=== PATIENT | female | born 1990 | race Caucasian/White ===

== ENCOUNTER 2021-07-24 12:00 | Inpatient (IN) | payer BC ==
[2021-07-22 12:58] VITALS: BMI 49.8
[2021-07-25 06:36] LABS: Glucose,Whole Blood 86 mg/dL (75-99)
[2021-07-25] MEDS ORDERED: CITRIC ACID-SODIUM CITRATE 15 ML CUP PO ONE ×2 (06:37→07:43)
[2021-07-25 06:49] VITALS: RESP 16
[2021-07-25 07:16] LABS: Basophils % (A) 0 %; Eosinophils # (A) 0.1 k/uL (0-0.7); Eosinophils % (A) 1 %; HCT 39.1 % (34.0-46.0); HGB 12.5 gm/dL (11.4-16.0); Lymphocytes # (A) 1.9 k/uL (1.0-4.8); Lymphocytes % (A) 15 %; MCH 27.9 pg (25.0-35.0); MCV 87.3 fL (80.0-100.0); Mean Platelet Volume 8.4; Monocytes # (A) 0.5 k/uL (0-1.0); Monocytes % (A) 4 %; Neutrophils # (A) 9.5 k/uL (1.3-7.7); Neutrophils % (A) 78 %; Platelet Count 260 k/uL (150-450); RBC 4.48 m/uL (3.80-5.40); RDW 14.7 % (11.5-15.5); WBC 12.2 k/uL (3.8-10.6)
[2021-07-25] MEDS: LACTATED RINGERS 1,000 ML IV SCH ×2 (07:24→21:52)
[2021-07-25] MEDS ORDERED: ceFAZolin 3 GM in SODIUM CHLORIDE 0.9% 100 ML IVPB ONE (07:43)
[2021-07-25] MEDS ORDERED: OXYTOCIN 30 UNITS/500 ML NS BAG IV ONE (07:56)
[2021-07-25] MEDS ORDERED: MORPHINE SULFATE (PF) 0.3 MG/0.3 ML SYR ONE (07:56)
[2021-07-25] MEDS ORDERED: PHENYLEPHRINE-0.9% NACL SYG 1,000 MCG/10 ML SYRINGE ONE (07:56)
[2021-07-25] MEDS ORDERED: NALBUPHINE 10 MG/ML (1 ML AMP) ONE (07:56)
[2021-07-25] MEDS ORDERED: KETOROLAC 15 MG/ML 1 ML VIAL ONE (07:56)
[2021-07-25] MEDS ORDERED: ONDANSETRON 4 MG/2 ML VIAL ONE (07:56)
--- NOTE | 2021-07-25 07:57 | P.HPOB ---
History of Present Illness H&P Date: 07/25/21 Chief Complaint: large for gestational age this is a 30 year old 1 para 0 woman with an estimated due date of 08/03/2021 she was admitted at 38-5/7 weeks gestation for primary low transverse section secondary to ultrasound estimated weight greater than the 99th percentile with parameters indicating abdominal circumference also greater than the 99th percentile. She has gestational diabetes that is diet controlled. Based on a history of gestational diabetes and ultrasound estimated weight is she was offered primary low transverse section to prevent possible shoulder dystocia. After thorough discussions of risks, benefits, recovery and implications for future pregnancies, the patient and her have decided to proceed with primary low transverse section. Review of Systems All systems: negative Past Medical History Additional Past Medical History / Comment(s): PCOS History of Any Multi-Drug Resistant Organisms: None Reported Past Surgical History: Breast Surgery Additional Past Surgical History / Comment(s): breast reduction Past Anesthesia/Blood Transfusion Reactions: Motion Sickness, Postoperative Nausea & Vomiting (PONV) Past Psychological History: No Psychological Hx Reported Smoking Status: Never smoker Past Alcohol Use History: None Reported Past Drug Use History: None Reported - Past Family History Mother Family Medical History: No Reported History Medications and Allergies Home Medications Medication Instructions Recorded Confirmed Type Ascorbic Acid [Vitamin C] 500 mg PO DAILY 07/22/21 07/25/21 History [place]-3 Fatty Acids/Fish Oil [Fish 1 each PO DAILY 07/22/21 07/25/21 History Oil 1,000 mg Softgel] Pnv No.95/Ferrous Fum/Folic AC 1 each PO DAILY 07/22/21 07/25/21 History [ Multivitamin Tablet] metFORMIN HCL [Glucophage] 1,000 mg PO BID 07/22/21 07/25/21 History Allergies Allergy/AdvReac Type Severity Reaction Status Date / Time latex Allergy Unknown Verified 07/25/21 06:32 Exam Vital Signs Temp Pulse Resp Pulse Ox 07/25/21 06:28 97.1 F L 97 16 99 Intake and Output 07/24/21 07/25/21 07/25/21 22:59 06:59 14:59 Other: Weight 132.903 kg this is a pleasant, visibly gravid, female in no obvious distress. HEENT exam is unremarkable. Lungs are clear to auscultation bilaterally and the heart is a regular rate and rhythm. The abdomen is gravid with a fundal height of 45 cm. Pelvic exam is deferred. She has 1+ bilateral lower extremity edema and 1+ deep tendon reflexes. heart tones are category 1 by external fe jeremie monitoring. Results Result Diagrams: 07/25/21 06:30 Abnormal Lab Results - Last 24 Hours (Table) 07/25/21 Range/Units 06:30 WBC 12.2 H (3.8-10.6) k/uL Neutrophils # 9.5 H (1.3-7.7) k/uL Assessment and Plan (1) Gestational diabetes Current Visit: Yes Status: Acute Code(s): O24.419 - GESTATIONAL DIABETES MELLITUS IN , UNSP CONTROL SNOMED Code(s): 47930288 (2) Large for gestational age fetus Current Visit: Yes Status: Acute Code(s): WMR9928 - SNOMED Code(s): 696578642 Plan: 30-year-old 1 at 38-5/7 weeks gestation admitted for primary low transverse section secondary to significant estimated large for gestational age in setting of gestational diabetes. Specifically abdominal circumference was greater than 99th percentile and larger than head circumference percentile. Risks and benefits of primary low transverse section have been reviewed with the patient. Risks include bleeding, transfusion, infection, injury to bowel, bladder, ureters, infant or other maternal structures. We have discussed applications for future pregnancies. We also discussed the potential risk of shoulder dystocia in the event of vaginal delivery. Consent is signed for primary section. status is currently reassuring by external monitoring.
[2021-07-25] MEDS ORDERED: ONDANSETRON 4 MG/2 ML VIAL IVP PRN (09:29)
[2021-07-25] MEDS ORDERED: METOCLOPRAMIDE 5 MG/ML 2 ML VIAL IVP PRN (09:29)
[2021-07-25] MEDS ORDERED: diphenhydrAMINE 50 MG CAP PO PRN (09:29)
[2021-07-25] MEDS ORDERED: HYDROmorphone 2 MG TAB PO PRN (09:29)
[2021-07-25] MEDS ORDERED: OXYTOCIN 10 UNIT/ML 1 ML VIAL IM ONE (09:29)
[2021-07-25] MEDS ORDERED: ZOLPIDEM 5 MG TAB PO PRN (09:29)
[2021-07-25] MEDS ORDERED: NALOXONE 0.4 MG/ML 1 ML VIAL IV PRN ×2 (09:29→09:43)
[2021-07-25] MEDS ORDERED: diphenhydrAMINE 50 MG/ML 1 ML VIAL IVP PRN ×2 (09:29)
[2021-07-25] MEDS ORDERED: HYDROmorphone 1 MG/ML 1 ML SYRINGE IVP PRN (09:29)
[2021-07-25] MEDS ORDERED: SIMETHICONE 80 MG CHEWABLE PO PRN (09:29)
[2021-07-25] MEDS ORDERED: diphenhydrAMINE 25 MG CAP PO PRN (09:29)
[2021-07-25] MEDS ORDERED: MORPHINE SULFATE 2 MG/ML SYRINGE IVP PRN (09:43)
--- NOTE | 2021-07-25 09:51 | P.OP ---
Date of Procedure: 07/25/21 Preoperative Diagnosis: intrauterine at 38-5/7 weeks Large for gestational age based on ultrasound, estimated weight greater than the 99th percentile Gestational diabetes Postoperative Diagnosis: same Procedure(s) Performed: primary low transverse section Anesthesia: spinal Surgeon: Kandy Bryant Well Surveying Engineer #1: Ami Villarreal Estimated Blood Loss (ml): 400 IV fluids (ml): 1,000 Urine output (ml): 100 Pathology: none sent Condition: stable Disposition: PACU Indications for Procedure: Ultrasound at 36 weeks showing estimated weight greater than the 99th percentile and in particular and elevated abdominal circumference to head circumference ratio with the abdominal circumference also measuring greater than the 99th percentile. In the setting of gestational diabetes this increase her risk for shoulder dystocia at the time of vaginal delivery and she was counseled accordingly. Operative Findings: male in the vertex presentation with Apgars of 9 at 1 minute and 9 at 5 minutes weighing 9 lbs. 8 oz., 4300 g. Intact, three-vessel cord placenta. Small approximately 2 cm anterior fundal subserosal fibroid. Otherwise normal-appearing bilateral fallopian tubes and ovaries Description of Procedure: After the patient was met preoperatively and all questions were answered, she was taken to the operating room where spinal anesthetic was administered without incident. She was then positioned, prepped and draped in the dorsal supine position with a leftward tilt. Zapien catheter was placed. After anesthetic was confirmed adequate, a low transverse skin incision was made following the pre- existing scar. This was carried down to the underlying fascia both sharply and with the electrocautery. The fascia was then incised in the midline and extended bilaterally with the Dominique scissors. The superior aspect of the fascial incision was elevated and the underlying rectus muscles dissected off sharply and with the electrocautery. The inferior aspect of the fascial incision was also elevated and the underlying rectus muscles dissected off sharply. The muscles were adherent in the midline. These were bluntly and the peritoneum was tented up with hemostats. The peritoneum was entered sharply with the Metzenbaum scissors. The peritoneal incision was extended inferiorly and superiorly with good visualization of the bladder. The bladder blade was placed. The vesicouterine peritoneum was identified, tented up and entered sharply, the bladder flap was created both sharply and digitally. A low transverse uterine incision was then made sharply and carried down to the underlying amniotic membranes. Membranes were ruptured and clear fluid was noted. The uterine incision was extended bilaterally bluntly. The 's head was delivered from the incision without difficulty. The nose and mouth were bulb suctioned. The rest of the infant was delivered onto the field without difficulty. And cut and the was taken to the warmer. An intact, three-vessel cord placenta was then manually removed and the uterus was exteriorized. The uterus was cleared of all clot and debris. The uterine incision was delineated with Garcia clamps. The uterine incision was then closed in a running locked fashion with 0 Vicryl suture. a second imbricating layer with the same suture was placed. The uterus was then returned to the abdomen and the gutters were cleared of all clot and debris. The uterine incision was reinspected and Bovie electrocautery was utilized were necessary for hemostasis. The fascial edges, peritoneal edges and rectus muscles were inspected and Bovie electrocautery utilized were necessary for hemostasis. The fascia was then closed in a running fashion with 0 Vicryl suture. The subcuticular tissue was copiously suction irrigated and Bovie electrocautery utilized were necessary for hemostasis. 3-0 Vicryl suture was utilized to reapproximate the subcuticular tissue. The skin was then closed in a subcutaneous fashion with 4-0 Vicryl suture. All counts reported to me as correct by the operating room staff at the end of the procedure. The patient received antibiotics preoperatively and Pitocin following cord clamp. Mother and infant were both transported from the room in stable condition.
[2021-07-25] MEDS ORDERED: KETOROLAC 15 MG/ML 1 ML VIAL IVP SCH (18:00)
[2021-07-25] MEDS: KETOROLAC 30 MG/ML 1 ML VIAL IVP SCH (18:00)
[2021-07-25] MEDS: ACETAMINOPHEN TAB 500 MG TAB PO SCH ×2 (21:52→21:53)
[2021-07-25] MEDS: IBUPROFEN 600 MG TAB PO SCH (21:53)
[2021-07-25] MEDS: SENNOSIDES-DOCUSATE SODIUM 1 EACH TAB PO SCH (21:56)
[2021-07-26] MEDS: KETOROLAC 30 MG/ML 1 ML VIAL IVP SCH (00:37)
[2021-07-26] MEDS: LACTATED RINGERS 1,000 ML IV SCH ×2 (02:03→06:21)
[2021-07-26] MEDS: ACETAMINOPHEN TAB 500 MG TAB PO SCH ×3 (06:31→16:30)
[2021-07-26] MEDS: IBUPROFEN 600 MG TAB PO SCH ×2 (06:31→19:00)
[2021-07-26] MEDS: SENNOSIDES-DOCUSATE SODIUM 1 EACH TAB PO SCH ×2 (09:24→19:00)
[2021-07-26 09:32] LABS: Basophils % (A) 0 %; Eosinophils # (A) 0.1 k/uL (0-0.7); Eosinophils % (A) 1 %; HCT 33.2 % (34.0-46.0); HGB 10.9 gm/dL (11.4-16.0); Lymphocytes # (A) 1.5 k/uL (1.0-4.8); Lymphocytes % (A) 13 %; MCH 28.8 pg (25.0-35.0); MCHC 32.9 g/dL (31.0-37.0); MCV 87.6 fL (80.0-100.0); Mean Platelet Volume 8.4; Monocytes # (A) 0.5 k/uL (0-1.0); Monocytes % (A) 4 %; Neutrophils # (A) 9.4 k/uL (1.3-7.7); Neutrophils % (A) 81 %; Platelet Count 219 k/uL (150-450); RBC 3.79 m/uL (3.80-5.40); RDW 14.9 % (11.5-15.5); WBC 11.7 k/uL (3.8-10.6)
[2021-07-27] MEDS: ACETAMINOPHEN TAB 500 MG TAB PO SCH ×3 (00:11→13:41)
[2021-07-27] MEDS: IBUPROFEN 600 MG TAB PO SCH ×3 (02:19→10:03)
[2021-07-27] MEDS: KETOROLAC 30 MG/ML 1 ML VIAL IVP SCH ×2 (03:37→03:38)
[2021-07-27] MEDS: LACTATED RINGERS 1,000 ML IV SCH (03:39)
[2021-07-27 08:23] VITALS: BP 122/78; PULSE 85; TEMP 97.9
[2021-07-27] MEDS: SENNOSIDES-DOCUSATE SODIUM 1 EACH TAB PO SCH (08:27)
--- NOTE | 2021-07-27 08:39 | P.PNOBGPC ---
Subjective - Subjective Principal diagnosis: Postop day 1, primary Interval history: Patient is doing well post operatively. Ambulating and voiding without difficulty. She is tolerating a regular diet without nausea or vomiting. She is breast-feeding without difficulty, she states her pain is well-controlled with oral ibuprofen and Tylenol. Patient reports: Reports appetite normal, Reports voiding normally, Reports pain well controlled, Reports ambulating normally [place]: doing well Objective - Vital Signs Latest vital signs: Vital Signs Temp Pulse Resp BP Pulse Ox 07/27/21 08:00 97.9 F 85 16 122/78 07/27/21 00:00 97.7 F 99 16 125/78 99 07/26/21 16:00 98.2 F 102 H 16 117/77 07/26/21 12:00 98.8 F 114 H 16 138/66 07/26/21 09:14 97.9 F 101 H 16 112/75 07/26/21 09:08 97.9 F 101 H 16 112/75 - Exam Extremities: Present: normal, edema Abdomen: Present: normal appearance Incision: Present: normal, dry Uterus: Present: normal, firm - Labs Labs: Abnormal Lab Results - Last 24 Hours (Table) 07/26/21 Range/Units 08:58 WBC 11.7 H (3.8-10.6) k/uL RBC 3.79 L (3.80-5.40) m/uL Hgb 10.9 L (11.4-16.0) gm/dL Hct 33.2 L (34.0-46.0) % Neutrophils # 9.4 H (1.3-7.7) k/uL Assessment and Plan (1) S/P section Current Visit: Yes Status: Acute Code(s): Z98.891 - HISTORY OF UTERINE SCAR FROM PREVIOUS SURGERY SNOMED Code(s): 362636932 (2) Gestational diabetes Current Visit: Yes Status: Acute Code(s): O24.419 - GESTATIONAL DIABETES MELLITUS IN , UNSP CONTROL SNOMED Code(s): 12109193 (3) Large for gestational age fetus Current Visit: Yes Status: Acute Code(s): NYU3277 - SNOMED Code(s): 654727947 Plan: Patient is doing well postoperatively. Encourage increased ambulation. Continue routine postoperative care and anticipate discharge home tomorrow. Late entry of this note as the computers are down yesterday.
--- NOTE | 2021-07-27 08:48 | P.DS ---
Providers Date of admission: 07/25/21 06:00 Expected date of discharge: 07/27/21 Attending physician: Kandy Bryant Primary care physician: Stated None - Discharge Diagnosis(es) (1) S/P section Current Visit: Yes Status: Acute (2) Gestational diabetes Current Visit: Yes Status: Acute (3) Large for gestational age fetus Current Visit: Yes Status: Acute Hospital Course: This is a 30-year-old 1 now para 1 that presented to labor and delivery for scheduled primary secondary to large for gestational age , known gestational diabetes A1. Patient had been receiving routine care which has been complicated by a diagnosis of gestational diabetes. Patient had been well controlled with diet during the . Patient had an ultrasound approximate 2 weeks prior to today revealing a large for gestational age infant, abdominal circumference greater than the 99th percentile. Patient was counseled on primary given large for gestational age . Patient elected to proceed with primary . Patient was admitted and was performed without difficulty. A viable male infant was delivered at 821, weight of 9 lbs. 8 oz. with Apgars of 9 and 9 at one and 5 minutes respectively. Patient's course has been uneventful. On this day #2 she is a billing and voiding without difficulty. She is tolerating a regular diet without nausea or vomiting. She states her pain is well-controlled. She is breast and bottle feeding. Infant continues to do well and she wishes discharge home. Patient Condition at Discharge: Good Plan - Discharge Summary Discharge Rx Participant: No New Discharge Prescriptions: No Action Pnv No.95/Ferrous Fum/Folic AC [ Multivitamin Tablet] 1 each PO DAILY Ascorbic Acid [Vitamin C] 500 mg PO DAILY metFORMIN HCL [Glucophage] 1,000 mg PO BID [place]-3 Fatty Acids/Fish Oil [Fish Oil 1,000 mg Softgel] 1 each PO DAILY Discharge Medication List Ascorbic Acid [Vitamin C] 500 mg PO DAILY 07/22/21 [History] [place]-3 Fatty Acids/Fish Oil [Fish Oil 1,000 mg Softgel] 1 each PO DAILY 07/22/21 [History] Pnv No.95/Ferrous Fum/Folic AC [ Multivitamin Tablet] 1 each PO DAILY 07/22/21 [History] metFORMIN HCL [Glucophage] 1,000 mg PO BID 07/22/21 [History] Follow up Appointment(s)/Referral(s): Kandy Bryant MD [STAFF PHYSICIAN] - 2 Weeks Patient Instructions/Handouts: (DC), (GEN) Discharge Disposition: HOME SELF-CARE
--- NOTE | 2021-07-27 19:00 | P.PN ---
Progress Note - Text 07/26/21 [id number] 20-year-old female status post with spinal Duramorph. Patient seen and evaluated for postop pain control, she had a vas of 1 with no complains of nausea vomiting or pruritus. Patient doing well
== END 2021-07-27 15:53 | disposition home or self-care (01) | DRG 788 ==
LOC: 4FBP 07-25 06:00
PROVIDERS: ADMIT Obstetrics & Gynecology; ATTEND Obstetrics & Gynecology
PROC: 10D00Z1 Extraction of Products of Conception, Low, Open Approach (ICD-10-PCS; principal; 2021-07-25 08:00)
DX: O36.63X0 Maternal care for excessive fetal growth, third trimester, not applicable or unspecified (principal); Z3A.38 38 weeks gestation of pregnancy; Z37.0 Single live birth; O34.13 Maternal care for benign tumor of corpus uteri, third trimester; O24.425 Gestational diabetes mellitus in childbirth, controlled by oral hypoglycemic drugs; D25.2 Subserosal leiomyoma of uterus; Z79.84 Long term (current) use of oral hypoglycemic drugs
CPT/HCPCS: 83036; 85025; 86850; 86900; 86901

== ENCOUNTER 2021-08-31 19:41 | Emergency (ER) | payer BC ==
--- NOTE | 2021-08-31 21:13 | ED ---
General Adult HPI - General Chief complaint: Upper Respiratory Infection Stated complaint: COVID+,Wants antibodies Time Seen by Provider: 08/31/21 20:00 Source: patient Mode of arrival: ambulatory Limitations: no limitations - History of Present Illness Initial comments: 30-year-old female presents emergency department requesting antibody infusion. She reports that she went to her 's work alliance party and soon afterwards was told that someone at the alliance party tested positive. She was tested on Wednesday at a [facility]. Was not concerning symptoms at that time. Reports that on Wednesday she began having a cough, congestion and fever. Admits to nausea without vomiting. No chest pain. No concern for . Does have a 1-month-old at home. Patient is not vaccinated. She has been able to eat and drink. No vomiting. Mild diarrhea yesterday. No other alleviating, precipitating or modifying factors - Related Data Home Medications Medication Instructions Recorded Confirmed Ascorbic Acid [Vitamin C] 500 mg PO DAILY 07/22/21 08/31/21 [place]-3 Fatty Acids/Fish Oil [Fish 1 cap PO DAILY 07/22/21 08/31/21 Oil 1,000 mg Softgel] Acetaminophen Tab [Tylenol Tab] 1,000 mg PO Q6HR PRN 08/31/21 08/31/21 Allergies Allergy/AdvReac Type Severity Reaction Status Date / Time latex Allergy Itching Verified 08/31/21 20:40 Review of Systems ROS Statement: Those systems with pertinent positive or pertinent negative responses have been documented in the HPI. ROS Other: All systems not noted in ROS Statement are negative. Past Medical History Past Medical History: No Reported History Additional Past Medical History / Comment(s): PCOS History of Any Multi-Drug Resistant Organisms: None Reported Past Surgical History: Breast Surgery, Section Additional Past Surgical History / Comment(s): breast reduction Past Anesthesia/Blood Transfusion Reactions: Motion Sickness, Postoperative Nausea & Vomiting (PONV) Past Psychological History: No Psychological Hx Reported Smoking Status: Never smoker Past Alcohol Use History: None Reported Past Drug Use History: None Reported - Past Family History Mother Family Medical History: No Reported History General Exam Limitations: no limitations General appearance: alert, in no apparent distress Head exam: Present: atraumatic, normocephalic, normal inspection Eye exam: Present: normal appearance, PERRL, EOMI. Absent: scleral icterus, conjunctival injection, periorbital swelling ENT exam: Present: normal exam, mucous membranes moist Neck exam: Present: normal inspection. Absent: tenderness, meningismus, lymphadenopathy Respiratory exam: Present: normal lung sounds bilaterally. Absent: respiratory distress, wheezes, rales, rhonchi, stridor Cardiovascular Exam: Present: regular rate, normal rhythm, normal heart sounds. Absent: systolic murmur, diastolic murmur, rubs, gallop, clicks GI/Abdominal exam: Present: soft, normal bowel sounds. Absent: distended, tenderness, guarding, rebound, rigid Extremities exam: Present: normal inspection, full ROM, normal capillary refill. Absent: tenderness, pedal edema, joint swelling, calf tenderness Back exam: Present: normal inspection Neurological exam: Present: alert, oriented X3, CN II-XII intact Psychiatric exam: Present: normal affect, normal mood Skin exam: Present: warm, dry, intact, normal color. Absent: rash Course Vital Signs 08/31/21 08/31/21 08/31/21 19:59 20:58 23:52 Temperature 98.2 F 97.8 F Pulse Rate 91 84 Respiratory 24 19 18 Rate Blood Pressure 126/90 133/81 O2 Sat by Pulse 97 95 Oximetry Medical Decision Making - Medical Decision Making Upon arrival patient is placed into room 27. A thorough history and physical exam is performed. IV is established. Patient is given antibody infusion. She tolerated the infusion well. She will be discharged home at this time. Is instructed to return to the emergency room for any new or worsening symptoms. Follow up with her doctor in 2-4 days. Patient agreed to the treatment plan and was discharged home in stable condition Disposition Clinical Impression: COVID-19 Disposition: HOME SELF-CARE Condition: Stable Instructions (If sedation given, give patient instructions): Coronavirus Disease 2019 (COVID-19) Additional Instructions: Please follow-up with your primary care doctor within 2-4 days. Return to the emergency room for any new or worsening symptoms Is patient prescribed a controlled substance at d/c from ED?: No Referrals: Mateo Melgoza MD [Primary Care Provider] - 1-2 days Time of Disposition: 21:13
[2021-08-31] MEDS ORDERED: BAMLANIVIMAB (EUA) 700 MG, ETESEVIMAB (EUA) 1,400 MG in SODIUM CHLORIDE 0.9% 50 ML IVPB ONE (21:45)
[2021-08-31] MEDS ORDERED: SODIUM CHLORIDE 0.9% 50 ML IVPB ONE (21:45)
[2021-08-31 23:53] VITALS: BP 133/81; PULSE 84; RESP 18; TEMP 97.8
== END 2021-08-31 23:52 | disposition home or self-care (01) ==
LOC: EC 19:41
DX: U07.1 COVID-19 (principal)
CPT/HCPCS: 99283 ×2; M0239; J3490

== ENCOUNTER 2023-11-05 09:54 | Inpatient (IN) | payer BC ==
[2023-11-03 16:13] VITALS: BMI 51.3
[2023-11-05 10:33] LABS: Glucose,Whole Blood 106 mg/dL (70-110)
[2023-11-05] MEDS: LACTATED RINGERS 1,000 ML IV ONE (10:35)
[2023-11-05] MEDS ORDERED: TRANEXAMIC 1,000 MG/100ML-NACL 1,000 MG in EMPTY BAG 1 BAG IV PRN (10:40)
[2023-11-05] MEDS ORDERED: miSOPROStoL 200 MCG TAB PO PRN (10:40)
[2023-11-05] MEDS ORDERED: METHYLERGONOVINE 0.2 MG/ML 1 ML AMP IM PRN (10:40)
[2023-11-05] MEDS ORDERED: OXYTOCIN 10 UNIT/ML 1 ML VIAL IM PRN (10:40)
[2023-11-05] MEDS ORDERED: CARBOPROST TROMETHAMINE 250 MCG/ML 1 ML AMP IM PRN (10:40)
[2023-11-05] MEDS: CITRIC ACID-SODIUM CITRATE 15 ML CUP PO ONE (11:05)
[2023-11-05] MEDS: ceFAZolin 3 GM in SODIUM CHLORIDE 0.9% 100 ML IVPB ONE (11:05)
[2023-11-05 11:08] LABS: Basophils % (A) 0 %; Eosinophils # (A) 0.1 k/uL (0-0.7); Eosinophils % (A) 1 %; HCT 37.1 % (34.0-46.0); HGB 12.5 gm/dL (11.4-16.0); Lymphocytes # (A) 1.7 k/uL (1.0-4.8); Lymphocytes % (A) 14 %; MCH 28.6 pg (25.0-35.0); MCHC 33.6 g/dL (31.0-37.0); Mean Platelet Volume 8.7; Monocytes # (A) 0.5 k/uL (0-1.0); Monocytes % (A) 4 %; Neutrophils # (A) 9.7 k/uL (1.3-7.7); Neutrophils % (A) 79 %; Platelet Count 236 k/uL (150-450); RBC 4.37 m/uL (3.80-5.40); RDW 14.7 % (11.5-15.5); WBC 12.2 k/uL (3.8-10.6)
[2023-11-05 11:20] LABS: Uric Acid 4.7 mg/dL (3.7-7.4)
[2023-11-05 11:48] LABS: African American GFR (CKD) >90 (>60 ml/min/1.73 sqM); Non-African American GFR(CKD) >90 (>60 ml/min/1.73 sqM)
[2023-11-05] MEDS ORDERED: MORPHINE SULFATE (PF) 0.3 MG/0.3 ML SYR ONE (11:48)
[2023-11-05] MEDS ORDERED: ONDANSETRON 4 MG/2 ML VIAL ONE (11:48)
[2023-11-05] MEDS ORDERED: KETOROLAC 15 MG/ML 1 ML VIAL ONE (11:48)
[2023-11-05] MEDS ORDERED: OXYTOCIN 10 UNIT/ML 1 ML VIAL ONE (11:48)
[2023-11-05] MEDS ORDERED: PHENYLEPHRINE-0.9% NACL SYG 1,000 MCG/10 ML SYRINGE ONE (11:48)
--- NOTE | 2023-11-05 11:49 | P.HPOB ---
History of Present Illness H&P Date: 11/05/23 Chief Complaint: Polyhydramnios at 38 weeks This is a 33 year old 2 para 1001 woman who is admitted at 38 weeks gestation for repeat low transverse section secondary to significant polyhydramnios and gestational diabetes. She had a previous low-transverse c esarean section in 2020 for gestational diabetes and macrosomia. Her is otherwise been uncomplicated. Her estimated due date is based on first trimester ultrasound. Most recent PADMINI was 36 cm. Obstetric history primary low transverse section in 2020 of 9 pound 8 ounce male infant. Laboratory data: Type A positive, antibody screen negative, rubella immune, VDRL nonreactive hepatitis B surface antigen negative, HIV negative, hepatitis C antibody negative, gonorrhea and clinic cultures negative, elevated 1 hour post tolerance test. Patient declined. Glucose tolerance testing and restarted on metformin, group B strep negative Review of Systems All systems: negative Past Medical History Past Medical History: Diabetes Mellitus Additional Past Medical History / Comment(s): PCOS, GESTATIONAL DIABETES History of Any Multi-Drug Resistant Organisms: None Reported Past Surgical History: Breast Surgery, Section Additional Past Surgical History / Comment(s): breast reduction Past Anesthesia/Blood Transfusion Reactions: Motion Sickness, Postoperative Nausea & Vomiting (PONV) Past Psychological History: No Psychological Hx Reported Smoking Status: Never smoker Past Alcohol Use History: None Reported Past Drug Use History: None Reported - Past Family History Mother Family Medical History: No Reported History Medications and Allergies Home Medications Medication Instructions Recorded Confirmed Type [place]-3 Fatty Acids/Fish Oil [Fish 1 cap PO DAILY 07/22/21 11/05/23 History Oil 1,000 mg Softgel] Vit No.179/Iron/Folic 1 each PO DAILY 11/03/23 11/05/23 History [ Tablet] metFORMIN HCL [Glucophage] 1,000 mg PO HS 11/03/23 11/05/23 History Aspirin 81 mg PO DAILY 11/05/23 11/05/23 History Allergies Allergy/AdvReac Type Severity Reaction Status Date / Time latex Allergy Itching Verified 11/05/23 10:38 Exam Vital Signs Temp Pulse Resp BP Pulse Ox 11/05/23 11:08 97.5 F L 107 H 16 136/84 100 Intake and Output 11/04/23 11/05/23 11/05/23 22:59 06:59 14:59 Other: Weight 131.542 kg This is a pleasant, visibly gravid female in no acute distress. HEENT exam is unremarkable. Her breathing is unlabored and her heart is a regular rate and rhythm. The abdomen is obese, gravid with a fundal height greater than on 45 cm. The cervix is closed, thick and high. heart tones are category 1 and she is not jett. She has 1+ bilateral lower extremity edema. Results Result Diagrams: 11/05/23 10:35 11/05/23 10:35 Abnormal Lab Results - Last 24 Hours (Table) 11/05/23 Range/Units 10:35 WBC 12.2 H (3.8-10.6) k/uL Neutrophils # 9.7 H (1.3-7.7) k/uL Assessment and Plan (1) History of delivery Current Visit: Yes Status: Acute Code(s): Z98.891 - HISTORY OF UTERINE SCAR FROM PREVIOUS SURGERY SNOMED Code(s): 007943916 (2) Polyhydramnios Current Visit: Yes Status: Acute Code(s): O40.9XX0 - POLYHYDRAMNIOS, UNSP TRIMESTER, NOT APPLICABLE OR UNSP SNOMED Code(s): 36756951 (3) Gestational diabetes Current Visit: No Status: Acute Code(s): O24.419 - GESTATIONAL DIABETES MELLITUS IN , UNSP CONTROL SNOMED Code(s): 14348072 Plan: 33-year-old 2 para 1001 woman admitted at 38 weeks gestation for repeat low transverse section secondary to gestational diabetes and worsening polyhydramnios. She mildly elevated blood pressure on admission today and PIH labs were drawn and at this point are normal. She has no other signs or sym ptoms of hypertension or preeclampsia. This benefits and alternatives to repeat section have been reviewed with the patient in detail. Risks include but are not limited to bleeding, infection, transfusion, injury to bowel, bladder, ureters and/or the , anesthesia consultation's and implications for future pregnancies. The patient understands these risks and consent is obtained. Time with Patient: Less than 30
[2023-11-05 11:53] LABS: INR 0.9 (<1.2); Partial Thromboplastin Time 25.8 sec (22.0-30.0); Prothrombin Time 9.8 sec (10.0-12.5)
[2023-11-05] MEDS ORDERED: diphenhydrAMINE 50 MG/ML 1 ML VIAL IVP PRN (12:52)
[2023-11-05] MEDS ORDERED: ONDANSETRON 4 MG/2 ML VIAL IVP PRN (12:52)
[2023-11-05] MEDS ORDERED: NALOXONE 0.4 MG/ML 1 ML VIAL IV PRN ×2 (12:52→13:15)
[2023-11-05] MEDS ORDERED: METOCLOPRAMIDE 5 MG/ML 2 ML VIAL IVP PRN (12:52)
[2023-11-05] MEDS ORDERED: diphenhydrAMINE 25 MG CAP PO PRN (12:52)
[2023-11-05] MEDS ORDERED: ZOLPIDEM 5 MG TAB PO PRN (12:52)
[2023-11-05] MEDS ORDERED: diphenhydrAMINE 50 MG CAP PO PRN (12:52)
[2023-11-05] MEDS ORDERED: SIMETHICONE 80 MG CHEWABLE PO PRN (12:52)
--- NOTE | 2023-11-05 12:52 | P.OP ---
Date of Procedure: 11/05/23 Preoperative Diagnosis: Intrauterine at 38 weeks gestation Polyhydramnios Gestational diabetes History of previous low transverse section Postoperative Diagnosis: Same Procedure(s) Performed: Repeat low transverse section Anesthesia: spinal Surgeon: Kandy Bryant Clinical Haematologist #1: Marcel Watts Estimated Blood Loss (ml): 450 IV fluids (ml): 1,000 Urine output (ml): 200 Pathology: none sent Condition: stable Disposition: floor Indications for Procedure: So 33-year-old 2 para 1 woman who is admitted at 38 weeks gestation for planned repeat low transverse section secondary to gestational diabetes and polyhydramnios Operative Findings: Male in the vertex presentation with Apgars of 9 at 1 minute and 9 at 5 minutes weighing 9 lbs. 5 oz., 4230 g. Copious clear fluid noted. She has a fibroid uterus with approximate 4 cm pedunculated anterior fundal fibroid. Normal-appearing bilateral fallopian tubes and ovaries. Intact, three-vessel cord placenta. Description of Procedure: After the patient was met preoperatively and all questions were answered, she was taken to the operating room where spinal anesthetic was administered without incident. She was then positioned, prepped and draped in the dorsal supine position with a leftward tilt. Zapien catheter was placed. After anesthetic was confirmed adequate, a low transverse skin incision was made following the pre- existing scar. This was carried down to the underlying fascia both sharply and with the electrocautery. The fascia was then incised in the midline and extended bilaterally with the Dominique scissors. The superior aspect of the fascial incision was elevated and the underlying rectus muscles dissected off sharply and with the electrocautery. The inferior aspect of the fascial incision was also elevated and the underlying rectus muscles dissected off sharply. The muscles were adherent in the midline. These were bluntly and the peritoneum was tented up with hemostats. The peritoneum was entered sharply with the Metzenbaum scissors. The peritoneal incision was extended inferiorly and superiorly with good visualization of the bladder. The bladder blade was placed. The vesicouterine peritoneum was identified, tented up and entered sharply, the bladder flap was created both sharply and digitally. A low transverse uterine incision was then made sharply and carried down to the underlying amniotic membranes. Membranes were ruptured and clear fluid was noted. The uterine incision was extended bilaterally bluntly. The infant's head was delivered from the incision without difficulty. The nose and mouth were bulb suctioned. The rest of the was delivered onto the field without difficulty. And cut and the was taken to the warmer. An intact, three-vessel cord placenta was then manually removed and the uterus was exteriorized. The uterus was cleared of all clot and debris. The uterine incision was delineated with Garcia clamps. The uterine incision was then closed in a running locked fashion with 0 Vicryl suture. Second imbricating layer of the same suture was placed. were placed where necessary along the incision for hemostasis. The uterus was then returned to the abdomen and the gutters were cleared of all clot and debris. The uterine incision was reinspect ed and Bovie electrocautery was utilized were necessary for hemostasis. The fascial edges, peritoneal edges and rectus muscles were inspected and Bovie electrocautery utilized were necessary for hemostasis. The rectus muscles were reapproximated in the midline with 0 Vicryl suture. The fascia was then closed in a running fashion with 0 Vicryl suture. The subcuticular tissue was copiously suction irrigated and Bovie electrocautery utilized were necessary for hemostasis. 3-0 Vicryl suture was utilized to reapproximate the subcuticular tissue. The skin was then closed in a subcutaneous fashion with 4-0 Vicryl suture. All counts reported to me as correct by the operating room staff at the end of the procedure. The patient received antibiotics preoperatively and Pitocin following cord clamp. Mother and were both transported from the room in stable condition.
[2023-11-05] MEDS ORDERED: OXYTOCIN 30 UNITS/500 ML NS 30 UNIT in SALINE 1 500ML.BAG IV SCH (13:00)
[2023-11-05] MEDS ORDERED: NALBUPHINE 10 MG/ML (10 ML MDV) IV PRN (13:15)
[2023-11-05] MEDS: diphenhydrAMINE 50 MG/ML 1 ML VIAL IVP PRN (15:20)
[2023-11-05] MEDS: LACTATED RINGERS 1,000 ML IV SCH (15:21)
[2023-11-05] MEDS: ACETAMINOPHEN TAB 500 MG TAB PO SCH (18:16)
[2023-11-05] MEDS: SENNOSIDES-DOCUSATE SODIUM 1 EACH TAB PO SCH (21:11)
[2023-11-05] MEDS: IBUPROFEN 600 MG TAB PO SCH (21:12)
[2023-11-05] MEDS: IBUPROFEN IV 800 MG in SODIUM CHLORIDE 0.9% 250 ML IV SCH (21:13)
[2023-11-06 08:12] LABS: Basophils # (A) 0.1 k/uL (0-0.2); Basophils % (A) 0 %; Eosinophils # (A) 0.2 k/uL (0-0.7); Eosinophils % (A) 2 %; HCT 34.2 % (34.0-46.0); HGB 11.1 gm/dL (11.4-16.0); Lymphocytes # (A) 1.2 k/uL (1.0-4.8); Lymphocytes % (A) 9 %; MCH 28.2 pg (25.0-35.0); MCHC 32.5 g/dL (31.0-37.0); MCV 86.6 fL (80.0-100.0); Mean Platelet Volume 8.5; Monocytes # (A) 0.8 k/uL (0-1.0); Monocytes % (A) 7 %; Neutrophils # (A) 10.4 k/uL (1.3-7.7); Neutrophils % (A) 81 %; Platelet Count 194 k/uL (150-450); RBC 3.95 m/uL (3.80-5.40); RDW 14.8 % (11.5-15.5); WBC 12.8 k/uL (3.8-10.6)
[2023-11-06 08:31] VITALS: RESP 18
--- NOTE | 2023-11-06 10:02 | P.PN ---
Progress Note - Text Progress Note Date: 11/06/23 (016) Anesthesia Postop day 1 Subjective: Status Post section with Duramorph. Patient seen and examined. Doing well without complaint. VAS 2/10. No nausea vomiting or pruritus. Denies fever. Gross lower extremity strength intact. Without apparent anesthetic complications. Objective: Vital signs reviewed Heart: Regular Rate Lungs: Good chest excursion Abdomen: Appears nondistended Assessment: Status post section with Duramorph postop day 1 Plan: 1. Continue current care with your medical management. Anticipated end to the duration of the Duramorph around surgery time today. You may see increased pain needs around this time. 2. This note was dictated using [employer] software. Please be advised there is a potential for misspellings or errors in forensic examiner.
--- NOTE | 2023-11-06 10:32 | P.PNOBGPC ---
Subjective - Subjective Patient reports: Reports appetite normal, Reports voiding normally, Reports pain well controlled, Reports ambulating normally : doing well Objective - Vital Signs Latest vital signs: Vital Signs Temp Pulse Resp BP Pulse Ox 11/06/23 08:00 98.5 F 76 18 117/71 96 11/06/23 03:43 97.9 F 95 16 96/58 98 11/06/23 00:00 98.1 F 93 16 101/62 94 L 11/05/23 20:00 98.8 F 103 H 16 123/72 93 L 11/05/23 18:00 16 11/05/23 15:03 97.4 F L 85 16 117/64 100 11/05/23 14:48 97.4 F L 85 16 117/64 100 11/05/23 14:33 87 16 125/69 92 L 11/05/23 14:18 88 16 97/67 95 11/05/23 14:03 84 16 113/63 96 11/05/23 13:48 94 16 126/60 96 11/05/23 13:33 89 16 126/68 95 11/05/23 13:18 90 16 98/52 96 11/05/23 13:03 85 16 97/56 98 11/05/23 12:48 97.2 F L 82 16 108/55 98 11/05/23 11:08 97.5 F L 107 H 16 136/84 100 Intake and Output 11/05/23 11/06/23 11/06/23 22:59 06:59 14:59 Intake Total 1000 500 Output Total 500 400 400 Balance 500 100 -400 Intake: IV 1000 Oral 500 Output: Urine 500 400 400 Straight 400 Uretheral (Zapien) 500 Other: Voiding Method Indwelling Catheter # Voids 1 - Exam Extremities: Present: normal Abdomen: Present: normal appearance, soft. Absent: distention, tenderness Incision: Present: normal, dry, intact Uterus: Present: normal, firm (The uterine fundus is tonic and minimally tender well below the umbilicus.) - Labs Labs: Abnormal Lab Results - Last 24 Hours (Table) 11/05/23 11/05/23 11/05/23 Range/Units 10:35 10:35 11:30 WBC 12.2 H (3.8-10.6) k/uL Hgb (11.4-16.0) gm/dL Neutrophils # 9.7 H (1.3-7.7) k/uL PT 9.8 L (10.0-12.5) sec Creatinine 0.40 L (0.52-1.04) mg/dL 11/06/23 Range/Units 07:53 WBC 12.8 H (3.8-10.6) k/uL Hgb 11.1 L (11.4-16.0) gm/dL Neutrophils # 10.4 H (1.3-7.7) k/uL PT (10.0-12.5) sec Creatinine (0.52-1.04) mg/dL Assessment and Plan (1) S/P section Current Visit: No Status: Acute Code(s): Z98.891 - HISTORY OF UTERINE SCAR FROM PREVIOUS SURGERY SNOMED Code(s): 650524686 Plan: Continue routine and postoperative care. I have encouraged the patient to ambulate in the hallways routinely. Assuming no complications, I would anticipate discharge home tomorrow.
[2023-11-07 08:09] VITALS: BP 144/85; PULSE 85; TEMP 97.9
--- NOTE | 2023-11-07 10:53 | P.DS ---
Providers Date of admission: 11/05/23 09:54 Expected date of discharge: 11/07/23 Attending physician: Kandy Bryant Primary care physician: Stated None - Discharge Diagnosis(es) (1) S/P section Current Visit: No Status: Acute Hospital Course: The patient is a 33-year-old 2 para 1-0-0-1 admitted at 38 weeks by good dating parameters. She is admitted for repeat low-transverse section secondary to significant polyhydramnios and gestational diabetes. She carries a history of a previous low-transverse section and requested repeat. Her has otherwise been uncomplicated and group B strep status is negative. She was taken to the operating room where she underwent repeat low-transverse section in an uncomplicated fashion and was delivered of a viable 9 pound 5 ounce baby boy with Apgars of 9 at 1 minute and 9 at 5 minutes. Her and postoperative course was unremarkable with vital signs remaining stable and her temperature was afebrile throughout. She was deemed stable for discharge on and postoperative day #2 and was discharged home to follow-up in the office in 2 weeks for an incision check in 6 weeks routinely. Discharge instructions included calling for any significantly increased bleeding or foul-smelling lochia, significantly increased fever abdominal pain, perineal complaints, breast complaints, incisional complaints, or anything else that concerned her. She was additionally instructed to have nothing in the vagina for at least 6 weeks time to include intercourse and to abstain from heavy lifting over the same period of time. She was lastly instructed to do no driving until off of all pain medications or 2 weeks time, whichever came first. She understood her instructions and agrees to follow-up as noted above. Discharge medications included continued vitamins as well as [id number] analgesic pain medications as needed. She was provided with a prescription for Tylenol 3, 1-2 p.o. every 6 hours as needed pain, #20 dispensed with no refills. Maternal blood type is a positive and rubella status is immune. Discharge hemoglobin and hematocrit were 11.1 and 34.2 respectively. Procedures: #1. Repeat low-transverse section Patient Condition at Discharge: Stable Plan - Discharge Summary Discharge Rx Participant: Yes New Discharge Prescriptions: No Action Aspirin 81 mg PO DAILY Ingalls-3 Fatty Acids/Fish Oil [Fish Oil 1,000 mg Softgel] 1 cap PO DAILY metFORMIN HCL [Glucophage] 1,000 mg PO HS Vit No.179/Iron/Folic [ Tablet] 1 each PO DAILY Discharge Medication List Ingalls-3 Fatty Acids/Fish Oil [Fish Oil 1,000 mg Softgel] 1 cap PO DAILY 07/22/21 [History] Vit No.179/Iron/Folic [ Tablet] 1 each PO DAILY 11/03/23 [History] metFORMIN HCL [Glucophage] 1,000 mg PO HS 11/03/23 [History] Aspirin 81 mg PO DAILY 11/05/23 [History] Follow up Appointment(s)/Referral(s): Kandy Bryant MD [STAFF PHYSICIAN] - 2 Weeks Discharge Disposition: HOME SELF-CARE
== END 2023-11-07 13:22 | disposition home or self-care (01) | DRG 788 ==
LOC: 4FBP 09:54
PROVIDERS: ADMIT Obstetrics & Gynecology; ATTEND Obstetrics & Gynecology
PROC: 10D00Z1 Extraction of Products of Conception, Low, Open Approach (ICD-10-PCS; principal; 2023-11-05 12:00)
DX: O34.211 Maternal care for low transverse scar from previous cesarean delivery (principal); Z3A.38 38 weeks gestation of pregnancy; O24.425 Gestational diabetes mellitus in childbirth, controlled by oral hypoglycemic drugs; O40.3XX0 Polyhydramnios, third trimester, not applicable or unspecified; Z37.0 Single live birth; Z79.82 Long term (current) use of aspirin; O99.284 Endocrine, nutritional and metabolic diseases complicating childbirth; E28.2 Polycystic ovarian syndrome; O34.13 Maternal care for benign tumor of corpus uteri, third trimester; D25.9 Leiomyoma of uterus, unspecified
CPT/HCPCS: 82565; 83615; 84450; 84460; 84520; 84550; 85025; 85610; 85730; 86850; 86900; 86901